=== PATIENT | female | born 1980 | race Caucasian/White ===

== ENCOUNTER 2016-08-18 15:14 | Emergency (ER) | payer OTHER ==
[~2016-08-18] VITALS: Ht 167.6 cm; Wt 63.0 kg
[~2016-08-18 15:14] MED LIST: FLEXERIL10 MG PO; FLEXERIL5 MG PO; MOTRIN800 MG PO; PROZAC20 MG PO; VICODIN 5-3001 EACH PO
[2016-08-18] MEDS ORDERED: GABAPENTIN300 MG PO (15:37)
[2016-08-18] MEDS ORDERED: ULTRAM50 MG PO (15:37)
[2016-08-18 16:27] LABS: HEMATOCRIT 42.8 % (36.0-46.0); MCH 30.3 PG (29.0-34.0); MCHC 33.4 G/DL (30.0-36.0); MCV 90.7 FL (83-99); MEAN PLAT.VOLUME 9.5 uM^3 (9.5-12.4); PLATELET COUNT 254 K/uL (156-360); RBC DIS.WIDTH-CV 12.5 % (11.8-14.6); RBC DIS.WIDTH-SD 41.1 % (39-53); RED BLOOD COUNT 4.72 M/uL (3.80-5.20)
[2016-08-18 16:38] LABS: CHLORIDE 108 mEq/L (99-109); SODIUM 140 mEq/L (136-147)
[2016-08-18 16:40] LABS: GLUCOSE 96 mg/dL (70-99)
[2016-08-18 16:41] LABS: ADD MIUA? NO; BILIRUBIN NEGATIVE; BLOOD NEGATIVE; COLOR STRAW ((YELLOW)); GLUCOSE (STRIP) NEGATIVE; KETONES NEGATIVE; LEUKOCYTES NEGATIVE; NITRITE NEGATIVE; PROTEIN (STRIP) NEGATIVE; SPECIFIC GRAVITY 1.005 (1.000-1.030); UROBILINOGEN 0.2 MG/DL (0.2-1.0)
[2016-08-18 16:41] LABS: ANION GAP 7 MEQ/L (2-14)
[2016-08-18 16:44] LABS: GFR ESTIMATE (CALCULATED) > 59 mL/min/; UREA NITROGEN (BUN) 12 mg/dL (9-23)
[2016-08-18 17:13] LABS: ERTH.SED.RATE 7 MM/HR (0-20)
[2016-08-18] MEDS ORDERED: VALIUM5 MG PO (18:17)
[2016-08-18 18:26] VITALS: BP 114/79
[2016-08-19 10:26] LABS: LYME DISEASE SEROLOGY SCREEN NEGATIVE (NEGATIVE)
== END 2016-08-18 18:37 | disposition home or self-care (01) ==
LOC: EME 15:14
PROVIDERS: Nurse Practitioner Family
DX: R29.90 Unspecified symptoms and signs involving the nervous system (principal); R51 Headache; R20.0 Anesthesia of skin; M54.2 Cervicalgia; R25.2 Cramp and spasm
CPT/HCPCS: 70553; 80048; 81003; 85027; 85651; 86618; 99281; 99284; J3010

== ENCOUNTER 2017-02-04 14:57 | Emergency (ER) | payer OTHER ==
[~2017-02-04 14:57] MED LIST changes: +GABAPENTIN300 MG PO; +ULTRAM50 MG PO; +VALIUM5 MG PO
[2017-02-04 15:15] LABS: EOSINOPHIL (%) 1.3 % (0-5); EOSINOPHIL COUNT 0.2 K/uL (0-0.3); IMMATURE GRANULOCYTE (%) 0.3 % (0.0-0.7); INSTRUMENT ABS NEUTROPHIL CT 8.9 K/uL; LYMPHOCYTE COUNT 2.5 K/uL (1.0-2.8); MCH 31.3 PG (29.0-34.0); MCHC 34.2 G/DL (30.0-36.0); MCV 91.5 FL (83-99); MEAN PLAT.VOLUME 9.6 uM^3 (9.5-12.4); MONOCYTE (%) 7.9 % (3-12); NEUTROPHIL (%) 70.1 % (45-76); NEUTROPHIL COUNT 8.9 K/uL (1.8-6.4); PLATELET COUNT 314 K/uL (156-360); RBC DIS.WIDTH-CV 12.2 % (11.8-14.6); WHITE BLOOD COUNT 12.6 K/uL (4.1-10.2)
[2017-02-04 15:31] LABS: AMYLASE 70 IU/L (1-118); CHLORIDE 109 mEq/L (99-109); POTASSIUM 3.3 mEq/L (3.7-5.4); SODIUM 140 mEq/L (136-147)
[2017-02-04 15:33] LABS: GLUCOSE 107 mg/dL (70-99)
[2017-02-04 15:35] LABS: ANION GAP 13 MEQ/L (2-14)
[2017-02-04 15:36] LABS: SERUM ETHYL ALCOHOL < 10 mg/dL
[2017-02-04 15:37] LABS: GFR ESTIMATE (CALCULATED) > 59 mL/min/
[2017-02-04 15:38] LABS: UREA NITROGEN (BUN) 11 mg/dL (9-23)
[2017-02-04 15:40] LABS: LIPASE 21 U/L (1.0-51.0)
[2017-02-04 15:49] LABS: QUANTITATIVE HCG < 4.0 MIU/ML
[2017-02-04] MEDS ORDERED: HYDROCODON-ACE1 EAC9 PO (17:35)
[2017-02-04] MEDS ORDERED: ZOFRAN4 MG PO (17:36)
== END 2017-02-04 18:45 | disposition home or self-care (01) ==
LOC: TRA 14:57
PROVIDERS: Emergency Medicine
DX: S43.101A Unspecified dislocation of right acromioclavicular joint, initial encounter (principal); V80.010A Animal-rider injured by fall from or being thrown from horse in noncollision accident, initial encounter; Y93.52 Activity, horseback riding; R51 Headache; M54.2 Cervicalgia; F32.9 Major depressive disorder, single episode, unspecified; F17.200 Nicotine dependence, unspecified, uncomplicated; Z88.5 Allergy status to narcotic agent
CPT/HCPCS: 70450; 71260; 72125; 73000; 74177; 80048; 81003; 82150; 83690; 84702; 85025; 86850; 86900; 86901; 99281; 99285; G0480; J2405; J3010

== ENCOUNTER 2017-08-15 08:15 | Day surgery (SDC) | payer OTHER ==
[~2017-08-15] VITALS: Ht 167.6 cm; Wt 65.7 kg
[~2017-08-15 08:15] MED LIST changes: +CYMBALTA60 MG PO; +HYDROCODON-ACE1 EAC9 PO; +LYRICA50 MG PO; +TYLENOL REGULA325 MG PO; +ZOFRAN4 MG PO
[2017-08-15 08:41] VITALS: BP 116/64
[2017-08-15 12:05] VITALS: BP 118/78
[2017-08-15 13:04] VITALS: BP 120/65
== END 2017-08-15 13:00 ==
LOC: SDC 08:15
PROC: 0U5B8ZZ Destruction of Endometrium, Via Natural or Artificial Opening Endoscopic (ICD-10-PCS; principal; 2017-08-15)
DX: N92.0 Excessive and frequent menstruation with regular cycle (principal); Z87.891 Personal history of nicotine dependence
CPT/HCPCS: J0131; J1100; J1170; J1885; J2250; J2405; J3010; J7643